=== PATIENT | male | born 1995 | race Caucasian/White ===

== ENCOUNTER 2020-08-29 23:29 | Emergency (ER) | payer OTHER ==
[~2020-08-29] VITALS: Ht 180.3 cm; Wt 68.0 kg
--- NOTE | 2020-08-29 23:32 | NUR ---
PT BIBRA C/O BILATERAL LOWER ABD PAIN AND DIFFICULTY HAVING BOWEL MOVEMENTS X MONTHS. PT AAOX4 BREATHING EVENLY AND UNLABORED. PER PT, HIS PAIN STARTED AFTER A SEXUAL ENCOUNTER. PT ATTACHED TO MONITOR AND POX. MD AT BEDSIDE FOR EVAL. PT GIVEN BLANKET AND CALL LIGHT WITHIN REACH. WILL CONTINUE TO MONITOR
[2020-08-29] MEDS ORDERED: ONDANSETRON HCL/PF 4 MG/2 ML VIAL ONE (23:58)
[2020-08-29] MEDS ORDERED: AZITHROMYCIN 250 MG TABLET ONE (23:58)
[2020-08-29] MEDS ORDERED: CEFTRIAXONE 500 MG VIAL ONE (23:58)
[2020-08-29] MEDS ORDERED: LIDOCAINE /MPF 1% VIAL 5 ML VIAL ONE (23:59)
[2020-08-29] MEDS ORDERED: METRONIDAZOLE 500 MG TABLET ONE (23:59)
--- NOTE | 2020-08-29 23:59 | NUR ---
BLOOD SENT TO LAB
[2020-08-30 00:03] LABS: BASOPHILS % (AUTO) 0.7 % (0.0-2.0); EOSINOPHILS % (AUTO) 1.2 % (0.0-6.0); HEMATOCRIT 42 % (39-51); HEMOGLOBIN 13.6 g/dL (13.5-17.5); LYMPHOCYTES % (AUTO) 17.9 % (20.0-44.0); MEAN CORPUSCULAR HGB CONC 33 g/dl (31.0-36.0); MEAN CORPUSCULAR VOLUME 92 fL (80-96); MONOCYTES # (AUTO) 0.4 K/uL (0.1-1.30); MONOCYTES % (AUTO) 7.2 % (2.0-12.0); NEUTROPHILS # (AUTO) 4.1 K/uL (1.8-8.9); PLATELET COUNT (AUTO) 182 K/uL (150-450); RED BLOOD CELL COUNT(AUTO) 4.54 MIL/uL (4.5-6.0); WHITE BLOOD COUNT (AUTO) 5.6 K/uL (4.3-11.0)
[2020-08-30] MEDS: IV NS 0.9% 1,000 ML BAG IV ONE (00:06)
[2020-08-30] MEDS: ONDANSETRON HCL/PF 4 MG/2 ML VIAL IVP ONE (00:06)
[2020-08-30] MEDS: AZITHROMYCIN 250 MG TABLET PO ONE (00:07)
[2020-08-30] MEDS: METRONIDAZOLE 500 MG TABLET PO ONE (00:07)
[2020-08-30] MEDS: CEFTRIAXONE 500 MG VIAL IM ONE (00:08)
--- NOTE | 2020-08-30 00:08 | NUR ---
MEDICATED PER ERMD ORDER, PT PAUL WELL. WILL CONT TO MONITOR.
[2020-08-30 00:24] LABS: CALCIUM, SERUM 8.5 mg/dL (8.5-10.1); CREATININE 1.2 mg/dL (0.6-1.3); POTASSIUM 3.7 mmol/L (3.5-5.1)
[2020-08-30 00:30] LABS: ALBUMIN 3.8 g/dL (3.4-5.0); BILIRUBIN,DIRECT 0.1 mg/dL (0.0-0.2); BILIRUBIN,TOTAL 0.3 mg/dL (0.2-1.0); TOTAL PROTEIN, SERUM 6.9 g/dL (6.4-8.2)
[2020-08-30] MEDS ORDERED: LIDOCAINE 2% JEL UROJET 10 ML MM ONE (01:21)
--- NOTE | 2020-08-30 01:29 | NUR ---
urine obtained and sent to lab
[2020-08-30] MEDS: LIDOCAINE 2% JEL UROJET 10 ML MM ONE (01:30)
[2020-08-30 03:23] LABS: BILIRUBIN,URINE NEGATIVE (NEGATIVE); COLOR,URINE YELLOW (YELLOW); LEUKOCYTE ESTERASE ,URINE NEGATIVE (NEGATIVE); NITRITE, URINE NEGATIVE (NEGATIVE); PROTEIN,URINE NEGATIVE (NEGATIVE); UGLUCOSE NEGATIVE (NEGATIVE); UROBILINOGEN,URINE 0.2 EU/dL (0.2)
[2020-08-30 03:28] LABS: RBC,URINE 0-2 /HPF (0-2); WBC,URINE 0-2 /HPF (0-3)
[2020-08-30 03:29] LABS: BACTERIA,URINE Few /HPF (None Seen); SQUAMOUS EPITHELIAL CELL,UR Few /HPF (None Seen); TRIPLE PHOSPHATE CRYSTAL,UR Moderate /HPF (None Seen); URINE AMORPHOUS PHOSPHATES Many /HPF (None Seen)
[2020-08-30] MEDS ORDERED: DOCU-141 PO (03:42)
[2020-08-30] MEDS ORDERED: POLY17PO4 PO (03:42)
--- NOTE | 2020-08-30 03:56 | NUR ---
IV removed. Catheter intact and site benign. Pressure and 4x4 applied to site. No bleeding noted.
--- NOTE | 2020-08-30 03:56 | NUR ---
Patient discharged to home in stable condition. Written and verbal after care instructions given. Patient verbalizes understanding of instruction.
[2020-08-30 03:57] VITALS: BP 131/84
== END 2020-08-30 03:57 | disposition home or self-care (01) ==
LOC: ER 23:31
DX: F19.10 Other psychoactive substance abuse, uncomplicated (principal); Z11.3 Encounter for screening for infections with a predominantly sexual mode of transmission; K59.00 Constipation, unspecified; R11.2 Nausea with vomiting, unspecified
CPT/HCPCS: 51702; 74176; 80048; 80076; 81001; 85025; 85730; 87491; 87591; 96361; 96372; 96374; 99285; J0696; J2405; J3490 ×2; J7030; 36415

== ENCOUNTER 2024-09-04 22:58 | Emergency (ER) | payer OTHER ==
[~2024-09-04 22:58] MED LIST: DOCU-141 PO; POLY17PO4 PO
== END 2024-09-05 01:21 | disposition left against medical advice (07) ==
LOC: ER 23:00
DX: A64 Unspecified sexually transmitted disease (principal); Z53.21 Procedure and treatment not carried out due to patient leaving prior to being seen by health care provider